=== PATIENT | male | born 1970 | race American Indian/Alaskan Native ===

== ENCOUNTER 2018-08-22 13:38 | Emergency (ER) | payer SELFPAY ==
[2018-08-22 14:14] VITALS: BP 153/90
--- NOTE | 2018-08-22 14:15 | Emergency Department Report ---
Blank Doc - Documentation Documentation: This is a 48-year-old male that presents with left tib-fib pain and neck/back pain s/p injury at work. This initial assessment/diagnostic orders/clinical plan/treatment(s) is/are subject to change based on patient's health status, clinical progression and re- assessment by fellow clinical providers in the ED. Further treatment and workup at subsequent clinical providers discretion. Patient/guardians urged not to elope from the ED as their condition may be serious if not clinically assessed and managed. Initial orders include: 1- Patient sent to [facility] for further evaluation and treatment 2- xray
[2018-08-22] MEDS ORDERED: IBUPROFEN PO ONE ×2 (14:53→14:54)
--- NOTE | 2018-08-22 15:47 | XRay Report ---
CERVICAL SPINE X-RAY, 3 VIEWS LUMBAR SPINE X-RAY, 3 VIEWS LEFT TIBIA AND FIBULA X-RAY, 2 VIEWS INDICATION: Neck pain, back pain and left leg pain after having a mesh seen fall on him 5 days ago. COMPARISON: None. Findings: Views of the cervical spine demonstrate no evidence for acute injury, malalignment, fracture or bone lesion. Minimal disc space narrowing is noted at C4-5 and C5-6. The remaining levels are within richmond l limits. Views of the lumbar spine demonstrate no evidence for acute injury, malalignment, fracture or bone le maria guadalupe. Mild disc space narrowing and facet arthropathy are identified at L3-4, L4-5 and L5-S1. The rem aining levels are within normal limits. 2 views of the left tibia and fibula demonstrate no evidence for fracture, bone lesion or joint patho logy. There is mild distal soft tissue swelling. IMPRESSION: No evidence for acute injury to the cervical spine. No evidence for acute injury to the lumbar spine. Mild soft tissue swelling of the left lower extremity. Signer Name: William Husain Jr, MD Signed: 08/22/2018 3:43 PM Workstation Name: [id number]
[2018-08-22] MEDS ORDERED: NORCO 5/325 PO ONE (16:06)
--- NOTE | 2018-08-22 17:06 | Emergency Department Report ---
HPI - General Chief Complaint: Extremity Injury, Lower Time Seen by Provider: 08/22/18 14:15 - HPI HPI: 48-year-old -[place] male presents to the emergency department with complaint of left leg pain and some generalized back pain after having a machine fall on him on 08/17/18, 5 days ago. He described this machine as a large lawnmower. He did not hit his head or have any loss of consciousness. He has some swelling to the left calf and an abrasion in this area. He has tried some ibuprofen for his pain without much relief. He has a past medical history of gout. He is able to ambulate despite these injuries. He says that he is up-to-date with his tetanus vaccination. ED Past Medical Hx - Past Medical History Additional medical history: gout - Surgical History Past Surgical History?: No - Social History Smoking Status: Current Every Day Smoker Substance Use Type: None - Medications Home Medications: Home Medications Medication Instructions Recorded Confirmed Last Taken Type HYDROcodone/APAP 5-325 [[place] 1 each PO Q6H PRN #12 tablet 08/22/18 Unknown Rx 5-325 mg TAB] Sulfamethoxazole/Trimethoprim 1 each PO BID #14 tablet 08/22/18 Unknown Rx [Bactrim DS TAB] ED Review of Systems ROS: Stated complaint: LFT LEG PAIN/BACK PAIN Other details as noted in HPI Comment: All other systems reviewed and negative Constitutional: denies: chills, fever Musculoskeletal: back pain, arthralgia, myalgia Skin: other (bruising, abrasions) Neurological: denies: headache, weakness, numbness, paresthesias Physical Exam - Physical Exam Vital Signs: Vital Signs 08/22/18 08/22/18 14:13 16:31 Temperature 97.9 F Pulse Rate 83 Respiratory 18 18 Rate Blood Pressure 153/90 O2 Sat by Pulse 98 Oximetry Physical Exam: GENERAL: The patient is well-developed well-nourished. HENT: Normocephalic. Atraumatic. Patient has moist mucous membranes. EYES: Extraocular motions are intact. Pupils equal reactive to light bilaterally. NECK: Supple. Trachea is midline. CHEST/LUNGS: Clear to auscultation. There is no respiratory distress noted. HEART/CARDIOVASCULAR: Regular. There is no tachycardia. There is no murmur. ABDOMEN: Abdomen is soft, nontender. Patient has normal bowel sounds. There is no abdominal distention. SKIN: There is some left calf swelling. This area is erythematous with some t hickened skin. This area is warm but not fluctuant. No bleeding, weeping or drainage. There is one area in the middle of the calf that is even more elevated with some abrasions over and may be a hematoma. NEURO: The patient is awake, alert, and oriented. The patient is cooperative. The patient has no focal neurologic deficits. The patient has normal speech. MUSCULOSKELETAL: There is tenderness to palpation to the left lower leg from the knee down to the ankle. There is no limitation range of motion. BACK: No midline thoracic or lumbar tenderness to palpation, step-off or deformity. There is bilateral paraspinal tenderness to palpation of the lumbar back. ED Course Vital Signs 08/22/18 08/22/18 14:13 16:31 Temperature 97.9 F Pulse Rate 83 Respiratory 18 18 Rate Blood Pressure 153/90 O2 Sat by Pulse 98 Oximetry ED Medical Decision Making - Radiology Data Radiology results: report reviewed CERVICAL SPINE X-RAY, 3 VIEWS LUMBAR SPINE X-RAY, 3 VIEWS LEFT TIBIA AND FIBULA X-RAY, 2 VIEWS INDICATION: Neck pain, back pain and left leg pain after having a mesh seen fall on him 5 days ago. COMPARISON: None. Findings: Views of the cervical spine demonstrate no evidence for acute injury, malalignment, fracture or bone lesion. Minimal disc space narrowing is noted at C4-5 and C5-6. The remaining levels are within normal limits. Views of the lumbar spine demonstrate no evidence for acute injury, malalignment, fracture or bone lesion. Mild disc space narrowing and facet arthropathy are identified at L3-4, L4-5 and L5-S1. The remaining levels are within normal limits. 2 views of the left tibia and fibula demonstrate no evidence for fracture, bone lesion or joint pathology. There is mild distal soft tissue swelling. IMPRESSION: No evidence for acute injury to the cervical spine. No evidence for acute injury to the lumbar spine. Mild soft tissue swelling of the left lower extremity. - Medical Decision Making This patient presented with complaint of left leg pain and some low back pain after a large lawnmower fell over on him about 1 week ago. He does have some swelling, abrasions and some erythema to the left calf. X-rays were done of the cervical and lumbar spine did not show any fracture, subluxation or any acute process. An x-ray was also done of the left tib-fib did not show any fracture, dislocation or any acute process. There is a small area, around the abrasion, that could be a hematoma. With the erythema and thickened skin to the left calf, the patient be treated for a cellulitis. A left lower extremity venous Doppler was done that was negative for DVT. He has been given a referral for orthopedists. He will return to the emergency Department with any worsening of his symptoms or any acute distress. - Differential Diagnosis fracture, dislocation, hematoma, DVT, cellulitis Critical Care Time: No Critical care attestation.: If time is entered above; I have spent that time in minutes in the direct care of this critically ill patient, excluding procedure time. ED Disposition Clinical Impression: Left leg pain Abrasion of left calf Qualifiers: Encounter type: initial encounter Qualified Code(s): S80.812A - Abrasion, left lower leg, initial encounter Cellulitis Qualifiers: Site of cellulitis: extremity Site of cellulitis of extremity: lower extremity Laterality: left Qualified Code(s): L03.116 - Cellulitis of left lower limb Back pain Qualifiers: Back pain location: back pain in unspecified location Chronicity: unspecified Back pain laterality: unspecified Qualified Code(s): M54.9 - Dorsalgia, unspecified Contusion Qualifiers: Encounter type: initial encounter Contusion area: lower leg Laterality: left Qualified Code(s): S80.12XA - Contusion of left lower leg, initial encounter Disposition: TO HOME OR SELFCARE Is pt being admited?: No Condition: Stable Instructions: Cellulitis (ED), Contusion in Adults (ED), Musculoskeletal Pain (ED), Arthralgia (ED) Additional Instructions: Please follow up with a primary care physician in the next few days. I am getting a referral for 2 different local orthopedic groups, Dr. Bowser and Juanita, to follow up regarding your back and leg pains. Take the antibiotics as prescribed. Return to the emergency Department with any worsening of her symptoms or any acute distress. You have been prescribed a medication that is sedating and therefore should not be taken prior to driving, working, and responsible for children and in no way should be mixed with alcohol of any quantity. Prescriptions: Sulfamethoxazole/Trimethoprim [Bactrim DS TAB] 1 each PO BID #14 tablet HYDROcodone/APAP 5-325 [[place] 5-325 mg TAB] 1 each PO Q6H PRN #12 tablet PRN Reason: Pain , Severe (7-10) Referrals: JOSI BOWSER MD [Staff Physician] - 2-3 Days [facility] [Provider Group] - 2-3 Days [facility] [Outside] - 2-3 Days Time of Disposition: 17:06
--- NOTE | 2018-08-22 17:17 | Vascular Lab Report ---
DUPLEX DOPPLER LOWER EXTREMITY VEINS, LEFT INDICATION: LLE pain and swelling. Left lower extremity he pain and swelling. TECHNIQUE: Duplex doppler imaging was performed through the veins of the left lower extremity using venous compr ession and other maneuvers. COMPARISON: None available. FINDINGS: Common Femoral vein: Negative. Superficial Femoral vein: Negative. Popliteal vein: Negative. Calf veins: Negative. Additional findings: None. IMPRESSION: 1. No sonographic evidence for DVT in the left lower extremity. Signer Name: Bony Matos MD Signed: 08/22/2018 5:12 PM Workstation Name: [id number]
== END 2018-08-22 17:18 | disposition home or self-care (01) ==
LOC: ED 13:38
DX: S80.12XA Contusion of left lower leg, initial encounter (principal); L03.116 Cellulitis of left lower limb; M54.9 Dorsalgia, unspecified; G89.29 Other chronic pain; F17.200 Nicotine dependence, unspecified, uncomplicated; X58.XXXA Exposure to other specified factors, initial encounter; Y93.89 Activity, other specified; Y92.89 Other specified places as the place of occurrence of the external cause; Y99.8 Other external cause status
CPT/HCPCS: 72040; 72100

== ENCOUNTER 2020-11-21 10:16 | Emergency (ER) | payer OTHER ==
[2020-11-21 11:30] VITALS: BP 150/77
--- NOTE | 2020-11-21 11:34 | Emergency Department Report ---
ED Abdominal Pain HPI - General Chief Complaint: Nausea/Vomiting/Diarrhea Stated Complaint: WEAK/DIZZY PUI?: No Time Seen by Provider: 11/21/20 11:28 Source: patient Mode of arrival: Ambulatory Limitations: No Limitations - History of Present Illness Initial Comments: 50 YO COMES TO HEADACHE WITH NUMEROUS COMPLAINTS DIZZY HEADACHE BLACK STOOL WEAKNESS HE FELT SO BAD HE LEFT WORK DENIED MEDS ON TRIAGE DENIES CIG/ETOH OR DRUGS DENIES FEVER OR CHILLS Complaint: other -: Gradual, days(s) Radiation: none Severity: mild Quality: cramping Consistency: constant Improves With: nothing Worsens With: nothing Associated Symptoms: denies other symptoms, other (SEE DEC MAKING ). denies: nausea, vomiting, diarrhea, fever, chills, constipation, dysuria, hematemesis, hematochezia, melena, hematuria, anorexia, syncope - Related Data Previous Rx's Medication Instructions Recorded Last Taken Type Pantoprazole [Protonix] 40 mg PO QDAY #30 tablet 11/21/20 Unknown Rx Sulfamethoxazole/Trimethoprim 1 each PO BID #10 tablet 11/21/20 Unknown Rx [Bactrim DS TAB] Allergies Allergy/AdvReac Type Severity Reaction Status Date / Time No Known Allergies Allergy Verified 08/22/18 14:54 ED Review of Systems ROS: Stated complaint: WEAK/DIZZY Other details as noted in HPI Comment: All other systems reviewed and negative ED Past Medical Hx - Past Medical History Previous Medical History?: Yes Additional medical history: gout. ANEMIA. OBESE - Surgical History Past Surgical History?: Yes Additional Surgical History: RECENT SHOULDER PAIN - Family History Family history: no significant - Social History Smoking Status: Current Every Day Smoker Substance Use Type: None - Medications Home Medications: Home Medications Medication Instructions Recorded Confirmed Last Taken Type Pantoprazole [Protonix] 40 mg PO QDAY #30 tablet 11/21/20 Unknown Rx Sulfamethoxazole/Trimethoprim 1 each PO BID #10 tablet 11/21/20 Unknown Rx [Bactrim DS TAB] ED Physical Exam - General Limitations: No Limitations General appearance: alert, in no apparent distress - Head Head exam: Present: atraumatic, normocephalic - Eye Eye exam: Present: normal appearance - ENT ENT exam: Present: mucous membranes moist - Neck Neck exam: Present: normal inspection - Respiratory Respiratory exam: Present: normal lung sounds bilaterally. Absent: respiratory distress - Cardiovascular Cardiovascular Exam: Present: regular rate, normal rhythm. Absent: systolic murmur, diastolic murmur, rubs, gallop - GI/Abdominal GI/Abdominal exam: Present: soft, normal bowel sounds - Rectal Rectal exam: Present: deferred - Extremities Exam Extremities exam: Present: normal inspection - Back Exam Back exam: Present: normal inspection - Neurological Exam Neurological exam: Present: alert, oriented X3 - Psychiatric Psychiatric exam: Present: normal affect, normal mood - Skin Skin exam: Present: warm, dry, intact, normal color. Absent: rash ED Course Vital Signs 11/21/20 11:27 Temperature 98.2 F Pulse Rate 99 H Respiratory 16 Rate Blood Pressure 150/77 [Left] O2 Sat by Pulse 100 Oximetry ED Medical Decision Making - Lab Data Result diagrams: 11/21/20 11:33 11/21/20 11:33 - Radiology Data Radiology results: report reviewed, image reviewed SEE REPORT - Medical Decision Making Labs 11/21/20 11/21/20 11/21/20 11:33 11:33 11:34 WBC 11.5 H RBC 2.99 L Hgb 8.8 L Hct 28.0 L MCV 94 MCH 29 MCHC 31 L RDW 15.2 Plt Count 267 Lymph % (Auto) 29.6 [place] % (Auto) 10.4 H Eos % (Auto) 0.4 Baso % (Auto) 0.7 Lymph # (Auto) 3.4 [place] # (Auto) 1.2 H Eos # (Auto) 0.0 Baso # (Auto) 0.1 Seg Neutrophils % 58.9 Seg Neutrophils # 6.8 Sodium 137 Potassium 4.4 Chloride 103.2 Carbon Dioxide 19 L Anion Gap 19 BUN 27 H Creatinine 1.0 Estimated GFR > 60 BUN/Creatinine Ratio 27 Glucose 123 H Calcium 9.0 Total Bilirubin 0.60 Direct Bilirubin < 0.2 Indirect Bilirubin 0.4 AST 48 H ALT 76 H Alkaline Phosphatase 53 Troponin T < 0.010 Total Protein 7.1 Albumin 4.6 Albumin/Globulin Ratio 1.8 Lipase 36 Urine Color Urine Turbidity Urine pH Ur Specific [place] Urine Protein Urine Glucose (UA) Urine Ketones Urine Blood Urine Nitrite Urine Bilirubin Urine Urobilinogen Ur Leukocyte Esterase Urine WBC (Auto) Urine RBC (Auto) 11/21/20 14:00 WBC RBC Hgb Hct MCV MCH MCHC RDW Plt Count Lymph % (Auto) [place] % (Auto) Eos % (Auto) Baso % (Auto) Lymph # (Auto) [place] # (Auto) Eos # (Auto) Baso # (Auto) Seg Neutrophils % Seg Neutrophils # Sodium Potassium Chloride Carbon Dioxide Anion Gap BUN Creatinine Estimated GFR BUN/Creatinine Ratio Glucose Calcium Total Bilirubin Direct Bilirubin Indirect Bilirubin AST ALT Alkaline Phosphatase Troponin T Total Protein Albumin Albumin/Globulin Ratio Lipase Urine Color Yellow Urine Turbidity Clear Urine pH 5.0 Ur Specific [place] 1.010 Urine Protein <15 mg/dl Urine Glucose (UA) Neg Urine Ketones Neg Urine Blood Neg Urine Nitrite Neg Urine Bilirubin Neg Urine Urobilinogen < 2.0 Ur Leukocyte Esterase Neg Urine WBC (Auto) 9.0 H Urine RBC (Auto) 2.0 Vital Signs 11/21/20 11:27 Temperature 98.2 F Pulse Rate 99 H Respiratory 16 Rate Blood Pressure 150/77 [Left] O2 Sat by Pulse 100 Oximetry LABS NOTED UA NOTED CT NOTED ON DC PT - CHANGES HIS HPI HE IS ON IRON BUT NOT TAKING DAILY NO HX LFT ABNORMALITIES AND HAS CHRONIC ANEMIA WE HAVE DISCUSSED UA LFT ELEVATED BG CT FINDINGS USE OF IRON DAILY -- WITH ANEMIA CAUSING MANY OF HIS SYMPTOMS DC HOME WITH RX FOR BACTRIM AND PPI PT VERBALIZES UNDERSTANDING OF DC PLAN OF CARE CARE OUTLINE ON DC TAB. ON DC PT AMBULATORY NON ILL NON TOXIC AND TAKING PO WITHOUT DIFFICULTY - Differential Diagnosis RO Critical care attestation.: If time is entered above; I have spent that time in minutes in the direct care of this critically ill patient, excluding procedure time. ED Disposition Clinical Impression: Abdominal pain, Anemia, UTI (urinary tract infection), Elevated liver function tests Disposition: 01 HOME / SELF CARE / HOMELESS Is pt being admited?: No Does the pt Need Aspirin: No Condition: Stable Instructions: Abdominal Pain, Adult, [place] Additional Instructions: FOLLOW UP WITH PCP IN 48 HOURS REFERRAL BELOW AVOID ALCOHOL AVOID TYLENOL AVOID MOTRIN MEDS ORDERED TODAY STAY WELL HYDRATED WITH WATER BLAND DIET AND ADVANCE TOLERATED TAKE YOUR IRON TABLETS DAILY Prescriptions: Sulfamethoxazole/Trimethoprim [Bactrim DS TAB] 1 each PO BID #10 tablet Pantoprazole [Protonix] 40 mg PO QDAY #30 tablet Referrals: FLAVIA CARUSO MD [Primary Care Provider] - 3-5 Days ROSALIA SEGAL MD [Staff Physician] - 3-5 Days Forms: Work/School Release Form(ED) Time of Disposition: 18:06
[2020-11-21 12:44] LABS: Basophils # (Auto) 0.1 K/mm3 (0.0-0.1); Basophils % (Auto) 0.7 % (0.0-1.8); Eosinophils % (Auto) 0.4 % (0.0-4.3); Hemoglobin 8.8 gm/dl (11.8-15.2); Lymphocytes # (Auto) 3.4 K/mm3 (1.2-5.4); Lymphocytes % (Auto) 29.6 % (13.4-35.0); Mean Corpuscular HGB Conc 31 % (32-34); Mean Corpuscular Volume 94 fl (84-94); Monocytes # (Auto) 1.2 K/mm3 (0.0-0.8); Monocytes % (Auto) 10.4 % (0.0-7.3); Platelet Count 267 K/mm3 (140-440); Red Blood Count 2.99 M/mm3 (3.65-5.03); Red Cell Distribution Width 15.2 % (13.2-15.2)
--- NOTE | 2020-11-21 13:07 | XRay Report ---
ACUTE ABDOMEN SERIES 3 VIEWS 12:30 INDICATION: abd pain COMPARISON: None available. FINDINGS: Lung verma appear clear. No pneumoperitoneum is noted. Bowel gas pattern is unremarkable. Calcifications of the lower pelvis probably are vascular though are somewhat indeterminate. Signer Name: Jonathan Colunga MD Signed: 11/21/2020 1:03 PM Workstation Name: [id number]
[2020-11-21 13:18] LABS: Alanine Aminotransferase 76 units/L (7-56); Albumin 4.6 g/dL (3.9-5); BUN/Creatinine Ratio 27; Blood Urea Nitrogen 27 mg/dL (9-20); Hemolysis Index 4
[2020-11-21 13:23] LABS: Bilirubin,Direct < 0.2 mg/dL (0-0.2)
[2020-11-21] MEDS ORDERED: SODIUM CHLORIDE 0.9% 1000 ML 1,000 ML IV ONE (14:43)
[2020-11-21 15:27] LABS: Bilirubin,Urine NEG (Negative); Blood,Urine NEG (Negative); Color,Urine Yellow (Yellow); Protein,Urine <15 mg/dL mg/dL (Negative); Urobilinogen,Urine < 2.0 mg/dL (<2.0)
--- NOTE | 2020-11-21 17:58 | Cat Scan Report ---
CT ABDOMEN AND PELVIS WITH CONTRAST INDICATION / CLINICAL INFORMATION: ABD PAIN /BLOODY STOOLS 100 ML OMNI 300 . TECHNIQUE: Axial CT images were obtained through the abdomen and pelvis after 100 mL Omnipaque [address] scans at this location are performed using CT dose reduction for ALARA by means of automated exposure control. COMPARISON: None available. FINDINGS: LOWER CHEST: No significant abnormality. LIVER: No significant abnormality. BILIARY SYSTEM: No significant abnormality. PANCREAS: No significant abnormality. SPLEEN: No significant abnormality. ADRENALS: No significant abnormality. KIDNEYS and URETERS: No significant abnormality. STOMACH / BOWEL: No significant abnormality. The appendix is normal. PERITONEUM: No free fluid. No free air. No fluid collection. LYMPH NODES: No significant adenopathy. VASCULAR STRUCTURES: No significant abnormality. URINARY BLADDER: No significant abnormality. REPRODUCTIVE ORGANS: No significant abnormality. ADDITIONAL FINDINGS: None. SKELETAL SYSTEM: No significant abnormality. IMPRESSION: 1. No acute process identified within the abdomen or pelvis to account for patient's symptoms. Signer Name: Shanthi Macario MD Signed: 11/21/2020 5:53 PM Workstation Name: [id number]
== END 2020-11-21 18:25 | disposition home or self-care (01) ==
LOC: ED 10:16
DX: D64.9 Anemia, unspecified (principal); N39.0 Urinary tract infection, site not specified; R94.5 Abnormal results of liver function studies; F17.200 Nicotine dependence, unspecified, uncomplicated; Z79.899 Other long term (current) drug therapy
CPT/HCPCS: 36415; 74022; 74177; 80048; 80076; 81001; 83690; 84484; 85025; 87086; 96360; 99284; J7030; Q9967

== ENCOUNTER 2021-05-28 08:01 | Emergency (ER) | payer SELFPAY ==
[2021-05-28] MEDS ORDERED: KETOROLAC 30 MG/1 ML INJ IM ONE (08:46)
[2021-05-28] MEDS ORDERED: dexAMETHasone 20 MG/5 ML VIAL IM ONE (08:47)
--- NOTE | 2021-05-28 09:37 | Emergency Department Report ---
ED General Adult HPI - General Chief complaint: Pain General Stated complaint: GOUT PAIN Source: patient, EMS Mode of arrival: Stretcher Limitations: No Limitations - History of Present Illness Initial comments: 40-year-old male presents to the ED complaining of bilateral knee pain since this morning. Patient states that he has a history of gout. She states that his gout will brought about after drinking a sixpack of alcohol. Patient states patient states painful when ambulate. Patient has bilateral edema noted to both knees. Denies any fever chills no nausea no vomiting. Patient states he did not have any gout medication at present. Severity scale (0 -10): 10 - Related Data Previous Rx's Medication Instructions Recorded Last Taken Type Pantoprazole [Protonix] 40 mg PO QDAY #30 tablet 11/21/20 Unknown Rx Sulfamethoxazole/Trimethoprim 1 each PO BID #10 tablet 11/21/20 Unknown Rx [Bactrim DS TAB] Colchicine 0.6 mg PO BID 15 Days #30 tab 05/28/21 Unknown Rx Naproxen [Naprosyn] 500 mg PO BID 15 Days #30 tablet 05/28/21 Unknown Rx predniSONE [Deltasone] 50 mg PO QDAY 5 Days #1 tab 05/28/21 Unknown Rx Allergies Allergy/AdvReac Type Severity Reaction Status Date / Time No Known Allergies Allergy Verified 05/28/21 08:06 ED Review of Systems ROS: Stated complaint: GOUT PAIN Other details as noted in HPI Constitutional: denies: chills, fever Eyes: denies: eye pain, eye discharge, vision change ENT: denies: ear pain, throat pain Respiratory: denies: cough, shortness of breath, wheezing Cardiovascular: denies: chest pain, palpitations Endocrine: no symptoms reported Gastrointestinal: denies: abdominal pain, nausea, diarrhea Genitourinary: denies: urgency, dysuria Musculoskeletal: joint swelling. denies: back pain, arthralgia Skin: denies: rash, lesions Neurological: denies: headache, weakness, paresthesias Psychiatric: denies: anxiety, depression Hematological/Lymphatic: denies: easy bleeding, easy bruising ED Past Medical Hx - Past Medical History Previous Medical History?: Yes Additional medical history: gout. ANEMIA. OBESE - Surgical History Additional Surgical History: RECENT SHOULDER PAIN - Social History Smoking Status: Current Every Day Smoker Substance Use Type: None - Medications Home Medications: Home Medications Medication Instructions Recorded Confirmed Last Taken Type Pantoprazole [Protonix] 40 mg PO QDAY #30 tablet 11/21/20 Unknown Rx Sulfamethoxazole/Trimethoprim 1 each PO BID #10 tablet 11/21/20 Unknown Rx [Bactrim DS TAB] Colchicine 0.6 mg PO BID 15 Days #30 tab 05/28/21 Unknown Rx Naproxen [Naprosyn] 500 mg PO BID 15 Days #30 tablet 05/28/21 Unknown Rx predniSONE [Deltasone] 50 mg PO QDAY 5 Days #1 tab 05/28/21 Unknown Rx ED Physical Exam - General Limitations: No Limitations General appearance: alert, in no apparent distress - Head Head exam: Present: atraumatic, normocephalic - Eye Eye exam: Present: normal appearance - ENT ENT exam: Present: mucous membranes moist - Neck Neck exam: Present: normal inspection - Respiratory Respiratory exam: Present: normal lung sounds bilaterally. Absent: respiratory distress - Cardiovascular Cardiovascular Exam: Present: regular rate, normal rhythm. Absent: systolic murmur, diastolic murmur, rubs, gallop - GI/Abdominal GI/Abdominal exam: Present: soft, normal bowel sounds - Rectal Rectal exam: Present: deferred - Extremities Exam Extremities exam: Present: normal inspection, tenderness - Back Exam Back exam: Present: normal inspection - Neurological Exam Neurological exam: Present: alert, oriented X3 - Psychiatric Psychiatric exam: Present: normal affect, normal mood - Skin Skin exam: Present: warm, dry, intact, normal color. Absent: rash ED Course Vital Signs 05/28/21 05/28/21 05/28/21 08:04 09:41 10:48 Temperature 98.3 F 96.2 F L Pulse Rate 100 H 90 88 Respiratory 18 18 Rate Blood Pressure 150/100 148/94 [Left] O2 Sat by Pulse 98 99 Oximetry ED Medical Decision Making - Medical Decision Making 39-year-old male presents ED after having wisdom tooth extracted complaining of pain. Patient states tooth extracted from emergent care dentist 3 on yesterday and was not given any antibiotic or pain medication. States that he has pain that is current 10 out of 10. Patient is alert and oriented x3. No trismus no drooling noted. No obvious edema noted to the jaw area. No acute distress noted no ill appearance noted. Physical examination patient has bilateral edema noted to both knee. Patient is ambulatory. Patient given Toradol 30 mg IM and Decadron 10 mg IM patient states pain is 2 out of 10 at time of discharge. Rechecked the patient is resting quietly quietly and comfortable and feeling better. I discussed the results of diagnostic study, my clinical impression and the plan for further treatment with the patient. Patient agrees with plan and discharge at this present time. All question addressed. I have given the patient instruction regarding a diagnosis ,expectation ,follow- up and return precaution. I explained to the patient that emergent condition may arise and to return to the ED for new worsen and any new persisting condition. I have explained the importance of following up with the primary care physician or referral physician listed below has instructed. The patient verbalized understanding of discharge instruction. Critical care attestation.: If time is entered above; I have spent that time in minutes in the direct care of this critically ill patient, excluding procedure time. ED Disposition Clinical Impression: Gout attack Qualifiers: Gout site: knee Gout etiology: unspecified cause Laterality: unspecified laterality Qualified Code(s): M10.9 - Gout, unspecified Disposition: 01 HOME / SELF CARE / HOMELESS Is pt being admited?: No Does the pt Need Aspirin: No Condition: Stable Instructions: Low-Purine Eating Plan, Uric Acid Nephropathy Additional Instructions: take medication as need Follow-up with your primary care doctor Return to the ED for any worsening symptoms Prescriptions: Colchicine 0.6 mg PO BID 15 Days #30 tab predniSONE [Deltasone] 50 mg PO QDAY 5 Days #1 tab Naproxen [Naprosyn] 500 mg PO BID 15 Days #30 tablet Referrals: [facility] [Provider Group] - 3-5 Days Time of Disposition: 09:43
[2021-05-28 10:49] VITALS: BP 148/94
== END 2021-05-28 10:48 | disposition home or self-care (01) ==
LOC: ED 08:01
DX: M10.9 Gout, unspecified (principal); Z79.899 Other long term (current) drug therapy; F17.200 Nicotine dependence, unspecified, uncomplicated
CPT/HCPCS: 96372; 99283; J1100; J1885